=== PATIENT | male | born 1975 | race Caucasian/White ===

== ENCOUNTER 2018-02-21 11:06 | Emergency (ER) | END 2018-02-21 14:09 | disposition home or self-care (01) ==

== ENCOUNTER 2018-09-15 18:38 | Emergency (ER) | END 2018-09-15 22:07 | disposition home or self-care (01) ==

== ENCOUNTER 2018-10-25 11:25 | Day surgery (SDC) | END 2018-10-25 13:55 | disposition home or self-care (01) ==

== ENCOUNTER 2019-06-24 20:23 | Emergency (ER) | payer BC ==
[~2019-06-24] VITALS: Ht 170.2 cm; Wt 85.0 kg
[~2019-06-24 20:23] MED LIST: ASPIRIN; ATORVASTATIN; LOSARTAN
[2019-06-24 20:26] VITALS: Ht 170.2 cm; Wt 85.0 kg
[2019-06-24] MEDS ORDERED: HYDR25TA6 PO (21:23)
[2019-06-24] MEDS ORDERED: IBUP-1542 PO (21:24)
[2019-06-24] MEDS ORDERED: KETOROLAC 30 MG INJ IM STA (21:27)
--- NOTE | 2019-06-24 21:30 | ERD ---
ER Documentation Chief Complaint Chief Complaint UPPER BACK PAIN/SWELLING X MONDAY. HPI 43-year-old male presents with upper back pain since 3 to 4 days ago. Denies any history of trauma. He has mild radiation of the chest. Denies any fevers, cough, vomiting, abdominal pain. Denies any urinary complaints or hematuria. He has a history of hypertension. He feels mild swelling in his legs as well. ROS All systems reviewed and are negative except as per history of present illness. Medications Home Meds Active Scripts Ibuprofen* (Motrin*) 600 Mg Tab, 600 MG PO Q6, #20 TAB Prov:DALE ROMAN MD 06/24/19 Hydrochlorothiazide* (Hydrochlorothiazide*) 25 Mg Tab, 25 MG PO DAILY, #30 TAB Prov:DALE ROMAN MD 06/24/19 Reported Medications [Atorvastatin] No Conflict Check 10/25/18 [Losartan] No Conflict Check 10/25/18 [Aspirin] No Conflict Check 10/25/18 Allergies Allergies: Coded Allergies: No Known Drug Allergies (Verified Allergy, Unknown, 10/25/18) PMhx/Soc History of Surgery: Yes (RIGHT TESTICLE SURGERY D/T BLOOD CLOT (2011)) Anesthesia Reaction: No Hx Neurological Disorder: Yes (PT STATES OCCASIONAL DIZZINESS) Hx Respiratory Disorders: No Hx Cardiac Disorders: Yes (HTN, HIGH CHOL) Hx Psychiatric Problems: No Hx Miscellaneous Medical Probl: No Hx Alcohol Use: Yes (OCCASIONAL) Hx Substance Use: No Hx Tobacco Use: Yes (WEEKLY) Smoking Status: Current some day smoker FmHx Family History: No diabetes, No coronary disease, No other Physical Exam Vitals Vital Signs Date Temp Pulse Resp B/P (MAP) Pulse Ox O2 O2 Flow FiO2 Time Delivery Rate 06/24/19 97.1 52 20 148/87 95 20:26 (107) Physical Exam Const: No acute distress Head: Atraumatic Eyes: Normal Conjunctiva ENT: Normal External Ears, Nose and Mouth. Neck: Full range of motion. No meningismus. No JVD. Resp: Clear to auscultation bilaterally Cardio: Regular rate and rhythm, no murmurs Abd: Soft, non tender, non distended. Normal bowel sounds Skin: No petechiae or rashes Back: No midline or flank tenderness Ext: No cyanosis, or edema. No appreciable significant edema Neur: Awake and alert Psych: Normal Mood and Affect Results 24 hrs Laboratory Tests Test 06/24/19 21:04 Urine Color YELLOW Urine Clarity CLEAR Urine pH 7.0 Urine Specific [place] 1.021 Urine Ketones NEGATIVE mg/dL Urine Nitrite NEGATIVE mg/dL Urine Bilirubin NEGATIVE mg/dL Urine Urobilinogen NEGATIVE mg/dL Urine Leukocyte Esterase NEGATIVE Antonio/ul Urine Hemoglobin NEGATIVE mg/dL Urine Glucose NEGATIVE mg/dL Urine Total Protein NEGATIVE mg/dl Current Medications Medications Dose Sig/Kylah Start Time Status Last (Trade) Ordered Route PRN Stop Time Admin Dose Reason Admin Ketorolac 30 mg ONCE STAT 06/24/19 DC Tromethamine IM 21:27 (Toradol) 06/24/19 21:28 Procedures/MDM EKG: Rate/Rhythm: Normal Sinus Rhythm and rate equals 52 QRS, ST, T-waves: No changes consistent w/ acute ischemia Impression: No evidence of ischemia or arrhythmia Chest X-ray 1V Interpreted by me: Soft Tissue: No acute abnormalities Bones: No acute abnormalities Mediastinum/Cardiac Silhouette/Lungs: No acute abnormalities. Impression-no acute findings 1 view chest x-ray. There is mild cardiomegaly. Negative for acute abnormalities. With upper back pain for last 4 days. He has no signs or symptoms suggest cardiac chest pain, hypoxemia, genitourinary etiology. He has no signs or symptoms of florid CHF. He may have muscular skeletal thoracic back pain. He was given Toradol 30 mg and was treated with ibuprofen, the addition of hydrochlorothiazide for his elevated blood pressure, recommendations for primary care follow-up and return precautions. The patient was stable with no new complaints during the ER course. Clinically, there is no current evidence to suggest meningitis, sepsis, acute abdomen, pneumonia, stroke, acute coronary syndrome, pulmonary embolism, aortic dissection or any other emergent condition appearing to require further evaluation or hospitalization. Patient counseled regarding my diagnostic impression and care plan. Prior to discharge all questions answered. Pt agrees with treatment plan and understands strict return precautions. Pt is instructed to follow up with primary care provider within 24- 48 hours. Precautionary instructions provided including instructions to return to the ER if not improving or for any worsening or changing symptoms or concerns. Disclaimer: Inadvertent spelling and grammatical errors are likely due to EHR/dictation software use and do not reflect on the overall quality of patient care. Also, please note that the electronic time recorded on this note does not necessarily reflect the actual time of the patient encounter. The patient's blood pressure was elevated (>120/80) but appears stable without evidence of hypertension emergency or urgency. The patient was counseled about the risks of hypertension and urged to pursue outpatient monitoring and therapy within a week with their primary care physician. I discussed the findings with the patient. I advised the patient to follow-up with the primary physician in about 1-2 days, sooner if needed and return if any concern. Departure Diagnosis: Primary Impression: Hypertension Hypertension type: unspecified Qualified Codes: I10 - Essential (primary) hypertension Additional Impression: Back pain Back pain location: thoracic back pain Chronicity: acute Back pain laterality: bilateral Qualified Codes: M54.6 - Pain in thoracic spine Condition: Stable Patient Instructions: Back Pain (Acute Or Chronic), Hypertension, Established, Thoracic Strain Referrals: DOCTOR,NOT ON STAFF (PCP) Additional Instructions: presion es arriba . vamos a empezar un nueva medicina. probablamente musculos es causa de dolor. Cheque otro vez con joy doctor primario en el proximo painting or regresa para mas o nueva simptomas. DALE ROMAN MD Jun 24, 2019 21:30
[2019-06-24 21:42] VITALS: BP 136/90; PULSE 51; RESP 18
== END 2019-06-24 21:42 | disposition home or self-care (01) ==
LOC: FTE 20:23
DX: I10 Essential (primary) hypertension (principal); F17.210 Nicotine dependence, cigarettes, uncomplicated; Z79.82 Long term (current) use of aspirin
CPT/HCPCS: 71045; 81003; 93005; 96372; 99285; J1885

== ENCOUNTER 2019-07-25 20:55 | Emergency (ER) | payer BC ==
[~2019-07-25] VITALS: Ht 170.2 cm; Wt 83.1 kg
[~2019-07-25 20:55] MED LIST changes: +HYDR25TA6 PO; +IBUP-1542 PO; +POLY10DR19 RIGHT EYE
[2019-07-25 21:08] VITALS: BP 120/69; PULSE 58; RESP 16; Ht 170.2 cm; Wt 83.1 kg
[2019-07-25] MEDS ORDERED: TETRACAINE 0.5% 4 ML OPH LEFT EYE ONE (23:30)
[2019-07-25] MEDS ORDERED: FLUORESCEIN STRIP LEFT EYE ONE (23:30)
== END 2019-07-26 00:42 | disposition home or self-care (01) ==
LOC: FTE 20:55
DX: S05.01XA Injury of conjunctiva and corneal abrasion without foreign body, right eye, initial encounter (principal); F17.210 Nicotine dependence, cigarettes, uncomplicated; X58.XXXA Exposure to other specified factors, initial encounter; Y92.9 Unspecified place or not applicable
CPT/HCPCS: 99283; Z7610